=== PATIENT | female | born 1985 | race American Indian/Alaskan Native ===

== ENCOUNTER 2020-10-17 14:10 | Emergency (ER) | payer OTHER, MEDICAID ==
[2020-10-17 15:33] VITALS: BP 123/77
[2020-10-17] MEDS ORDERED: KETOROLAC 30 MG/1 ML INJ IM ONE (16:47)
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
== END 2020-10-17 17:26 | disposition home or self-care (01) ==
LOC: ED 14:10
DX: S16.1XXA Strain of muscle, fascia and tendon at neck level, initial encounter (principal); F17.200 Nicotine dependence, unspecified, uncomplicated; Z98.890 Other specified postprocedural states; Z79.1 Long term (current) use of non-steroidal anti-inflammatories (NSAID); Z79.899 Other long term (current) drug therapy; V49.49XA Driver injured in collision with other motor vehicles in traffic accident, initial encounter; Y93.89 Activity, other specified; Y92.410 Unspecified street and highway as the place of occurrence of the external cause; Y99.8 Other external cause status
CPT/HCPCS: 96372; 99282; J1885